=== PATIENT | male | born 1955 | race Caucasian/White ===

== ENCOUNTER 2021-06-05 23:16 | Inpatient (IN) | payer MEDICAID ==
[~2021-06-05] VITALS: Ht 172.7 cm; Wt 84.2 kg
[~2021-06-05 23:16] MED LIST: GLIP5TAB12 PO; METF-370 PO
[2021-06-06 00:56] LABS: Hematocrit 36.3 % (41.0-53.0); Hemoglobin 12.3 g/dL (13.5-17.5); Mean Corpuscular Hemoglobin 30.4 pg (28.0-32.0); Mean Corpuscular Hgb Conc. 33.9 g/dL (32.0-36.0); Mean Corpuscular Volume 89.7 fL (80.0-100.0); Red Blood Cells 4.05 10^6/uL (4.5-5.90); Red Cell Distribution Width 14.1 % (11.8-14.3); White Blood Cell 8.7 10^3/uL (4.4-10.8)
[2021-06-06 00:58] LABS: Basophils % (manual) 0 (0.0-2.0); Blast Cells 0; Metamyelocytes % 0; Myelocytes % 0; Promyelocytes % 0; Reactive Lymphocytes 0
[2021-06-06 00:59] LABS: Urine Bacteria FEW /hpf (None Seen); Urine Blood Negative /uL (Negative); Urine Hyaline Cast MANY /lpf (0 - 2); Urine Mucus FEW (None Seen); Urine Specific Gravity 1.015 (1.001-1.035); Urine WBC 3 /hpf (0 - 3)
[2021-06-06 01:12] LABS: Partial Thromboplastin Time 21.2 sec (23.6-33.0)
[2021-06-06 01:15] LABS: Albumin 2.7 g/dL (3.4-5.0); BUN/Creatinine Ratio 18.5; Calcium 8.1 mg/dL (8.5-10.1); Magnesium 1.9 mg/dL (1.6-2.6); Potassium 4.8 mmol/L (3.5-5.1)
[2021-06-06 01:19] LABS: Bilirubin, Total 0.3 mg/dL (0.2-1.0); Total Protein 6.5 g/dL (6.4-8.2)
[2021-06-06 01:43] LABS: Band Neutrophils % (manual) 2; Eosinophils % (manual) 2 (0-7); Lymphocytes % (manual) 33 (10.0-50.0); Monocytes % (manual) 2 (0-12)
[2021-06-06] MEDS ORDERED: CLOPIDOGREL BISULFATE 75 MG TAB PO ONE (01:45)
[2021-06-06] MEDS ORDERED: HEPARIN SODIUM (PORCINE) 5000 UNITS/ML 1ML VIAL IV ONE ×2 (01:45→11:30)
[2021-06-06] MEDS ORDERED: ASPirin 325 MG TAB PO ONE (01:45)
[2021-06-06] MEDS ORDERED: HEPARIN DRIP/D5W 100UNITS/ML 250 ML IV SCH (01:45)
[2021-06-06] MEDS ORDERED: CLOPIDOGREL 300 MG TAB ONE (03:43)
[2021-06-06] MEDS ORDERED: CLOPIDOGREL BISULFATE 75 MG TAB ONE ×4 (03:50→03:55)
[2021-06-06] MEDS ORDERED: ALBUMIN 25% 50 ML IV ONE (06:15)
[2021-06-06] MEDS ORDERED: ACETAMINOPHEN 325 MG TAB PO PRN (06:15)
[2021-06-06] MEDS ORDERED: DOCUSATE SOD 100 MG CAP PO PRN (06:15)
[2021-06-06] MEDS ORDERED: DEXTROSE (50%) 50ML SYRG IV PRN (06:15)
[2021-06-06] MEDS ORDERED: MORPHINE SULFATE 4 MG/ML SYR/VIAL IV PRN (06:15)
[2021-06-06] MEDS: SODIUM CHLORIDE 0.9% 1,000 ML IV SCH ×2 (06:15→22:55)
[2021-06-06] MEDS ORDERED: HYDROcodone-ACET 5/325MG TAB PO PRN (06:15)
[2021-06-06] MEDS ORDERED: ONDANSETRON HCL 4 MG/2 ML VIAL IV PRN (06:15)
[2021-06-06] MEDS: InsuLIN REG 1unit/0.01ml Soln (100units/ml) SC SCH ×4 (07:00→21:53)
[2021-06-06] MEDS: ACCU-CHEK COMFORT CURVE STRIP VI SCH ×4 (07:00→21:51)
[2021-06-06] MEDS ORDERED: MORPHINE SULFATE INJECTION 2 MG/ML SYRG IV PRN (07:00)
[2021-06-06] MEDS ORDERED: NITROGLYCERIN 0.4 MG SL TAB SL PRN (07:00)
[2021-06-06 07:49] LABS: Basophils # (auto) 0.1 10 ^3/uL (0-0.2); Basophils % (auto) 1.1 % (0.0-2.0); Eosinophils # (auto) 0.2 10 ^3/uL (0-0.8); Eosinophils % (auto) 2.7 % (0.0-7.0); Hematocrit 37.5 % (41.0-53.0); Hemoglobin 12.5 g/dL (13.5-17.5); Lymphocytes # (auto) 2.2 10 ^3/uL (0.4-5.4); Lymphocytes % (auto) 32.6 % (10.0-50.0); Mean Corpuscular Hemoglobin 29.6 pg (28.0-32.0); Mean Corpuscular Hgb Conc. 33.4 g/dL (32.0-36.0); Mean Corpuscular Volume 88.8 fL (80.0-100.0); Monocytes # (auto) 0.4 10 ^3/uL (0-1.3); Monocytes % (auto) 6.7 % (0.0-12.0); Neutrophils # (auto) 3.8 10 ^3/uL (1.6-8.6); Neutrophils % (auto) 56.9 % (37.0-80.0); Red Blood Cells 4.22 10^6/uL (4.5-5.90); Red Cell Distribution Width 13.7 % (11.8-14.3); White Blood Cell 6.7 10^3/uL (4.4-10.8)
[2021-06-06 08:05] LABS: Albumin 2.9 g/dL (3.4-5.0); BUN/Creatinine Ratio 19.2; Calcium 8.6 mg/dL (8.5-10.1); Potassium 4.3 mmol/L (3.5-5.1)
[2021-06-06 08:08] LABS: Bilirubin, Total 0.3 mg/dL (0.2-1.0); Total Protein 6.2 g/dL (6.4-8.2)
[2021-06-06 10:14] LABS: INR 1.03 (0.9-1.15); Partial Thromboplastin Time 35.1 sec (23.6-33.0)
[2021-06-06] MEDS: HEPARIN DRIP/D5W 100UNITS/ML 250 ML IV SCH (12:09)
[2021-06-06] MEDS: ASPirin 81 mg TAB PO SCH (12:35)
[2021-06-06] MEDS: FAMOTIDINE (10MG/ML) 2ML VL IV SCH ×2 (12:35→21:54)
[2021-06-06 13:00] VITALS: BP 125/65
[2021-06-06] MEDS ORDERED: LISI-275 PO (14:51)
[2021-06-06 17:00] VITALS: BP 133/61
[2021-06-06 18:52] LABS: INR 1.05 (0.9-1.15); Partial Thromboplastin Time 42.3 sec (23.6-33.0)
[2021-06-06] MEDS: ATORVASTATIN 20 MG TAB PO SCH (21:55)
[2021-06-06 22:00] VITALS: BP 132/64
[2021-06-07 01:36] LABS: INR 1.05 (0.9-1.15); Partial Thromboplastin Time 44.4 sec (23.6-33.0)
[2021-06-07] MEDS: HEPARIN DRIP/D5W 100UNITS/ML 250 ML IV SCH (02:06)
[2021-06-07 05:00] VITALS: BP 143/71
[2021-06-07] MEDS: InsuLIN REG 1unit/0.01ml Soln (100units/ml) SC SCH ×4 (06:34→22:23)
[2021-06-07] MEDS: ACCU-CHEK COMFORT CURVE STRIP VI SCH ×4 (06:34→22:23)
[2021-06-07 07:21] LABS: Basophils # (auto) 0.1 10 ^3/uL (0-0.2); Basophils % (auto) 1.5 % (0.0-2.0); Eosinophils # (auto) 0.2 10 ^3/uL (0-0.8); Eosinophils % (auto) 2.8 % (0.0-7.0); Hematocrit 38.6 % (41.0-53.0); Hemoglobin 13.1 g/dL (13.5-17.5); Lymphocytes # (auto) 1.8 10 ^3/uL (0.4-5.4); Lymphocytes % (auto) 28.1 % (10.0-50.0); Mean Corpuscular Hgb Conc. 33.9 g/dL (32.0-36.0); Mean Corpuscular Volume 88.7 fL (80.0-100.0); Monocytes # (auto) 0.5 10 ^3/uL (0-1.3); Monocytes % (auto) 7.1 % (0.0-12.0); Neutrophils # (auto) 3.9 10 ^3/uL (1.6-8.6); Neutrophils % (auto) 60.5 % (37.0-80.0); Red Blood Cells 4.36 10^6/uL (4.5-5.90); Red Cell Distribution Width 13.8 % (11.8-14.3); White Blood Cell 6.4 10^3/uL (4.4-10.8)
[2021-06-07 07:28] LABS: INR 1.05 (0.9-1.15)
[2021-06-07 07:30] LABS: Calcium 8.5 mg/dL (8.5-10.1); Potassium 4.5 mmol/L (3.5-5.1)
[2021-06-07 07:36] LABS: Albumin 2.9 g/dL (3.4-5.0); BUN/Creatinine Ratio 16.5; Bilirubin, Total 0.3 mg/dL (0.2-1.0); Total Protein 6.3 g/dL (6.4-8.2)
[2021-06-07 09:00] VITALS: BP 142/72
[2021-06-07] MEDS: FAMOTIDINE (10MG/ML) 2ML VL IV SCH ×2 (10:10→22:06)
[2021-06-07] MEDS: ASPirin 81 mg TAB PO SCH (10:11)
[2021-06-07 13:00] VITALS: BP 124/61
[2021-06-07 14:23] LABS: INR 1.04 (0.9-1.15); Partial Thromboplastin Time 60.5 sec (23.6-33.0)
[2021-06-07 17:00] VITALS: BP 133/71
[2021-06-07] MEDS: SODIUM CHLORIDE 0.9% 1,000 ML IV SCH ×2 (19:28→20:28)
[2021-06-07 19:36] LABS: Partial Thromboplastin Time 31.3 sec (23.6-33.0)
[2021-06-07] MEDS ORDERED: HEPARIN SODIUM (PORCINE) 5000 UNITS/ML 1ML VIAL IV ONE (20:30)
[2021-06-07] MEDS ORDERED: HEPARIN DRIP/D5W 100UNITS/ML 250 ML IV SCH (20:30)
[2021-06-07 22:00] VITALS: BP 123/46
[2021-06-07] MEDS: ATORVASTATIN 20 MG TAB PO SCH (22:06)
[2021-06-08 03:39] LABS: INR 1.04 (0.9-1.15)
[2021-06-08 03:43] LABS: Partial Thromboplastin Time > 139.0 sec (23.6-33.0)
[2021-06-08 05:00] VITALS: BP 137/66
[2021-06-08 06:03] LABS: INR 1.04 (0.9-1.15); Partial Thromboplastin Time 64.6 sec (23.6-33.0)
[2021-06-08] MEDS: InsuLIN REG 1unit/0.01ml Soln (100units/ml) SC SCH ×3 (06:50→18:45)
[2021-06-08] MEDS: ACCU-CHEK COMFORT CURVE STRIP VI SCH ×3 (06:50→17:00)
[2021-06-08 09:00] VITALS: BP 143/60
[2021-06-08] MEDS: FAMOTIDINE (10MG/ML) 2ML VL IV SCH (10:34)
[2021-06-08] MEDS: ASPirin 81 mg TAB PO SCH (10:34)
[2021-06-08 12:28] LABS: INR 1.02 (0.9-1.15); Partial Thromboplastin Time 39.6 sec (23.6-33.0)
[2021-06-08 12:31] VITALS: BP 157/75
[2021-06-08] MEDS ORDERED: LIDOCAINE 2%HCL (LOCAL ANESTH.) INJ 20ML MDV ONE (13:23)
[2021-06-08] MEDS ORDERED: IOHEXOL 350 MG/ML 100ML IJ ONE (13:23)
[2021-06-08] MEDS ORDERED: ANGIOMAX 250 MG VIAL IV ONE (13:32)
[2021-06-08] MEDS ORDERED: fentaNYL CITRATE 100 MCG/2 ML VL ONE (13:33)
[2021-06-08] MEDS ORDERED: MIDAZOLAM HCL 2MG/2ML 2ml VIAL (1mg/ml) ONE (13:33)
[2021-06-08] MEDS ORDERED: SODIUM CHL 0.9% 50 ML ONE (13:33)
[2021-06-08 17:00] VITALS: BP 146/70
== END 2021-06-08 19:15 | disposition home or self-care (01) | DRG 190 ==
LOC: EDBD 23:16 → ER 23:16 → TELE 06-06 06:47 → TELE-CENTR 06-06 11:05
PROVIDERS: ADMIT Nurse Practitioner Family; ATTEND Internal Medicine
PROC: 4A033BC Measurement of Arterial Pressure, Coronary, Percutaneous Approach (ICD-10-PCS; principal; 2021-06-08)
PROC: B2111ZZ Fluoroscopy of Multiple Coronary Arteries using Low Osmolar Contrast (ICD-10-PCS; 2021-06-08)
PROC: 4A023N7 Measurement of Cardiac Sampling and Pressure, Left Heart, Percutaneous Approach (ICD-10-PCS; 2021-06-08)
PROC: B2151ZZ Fluoroscopy of Left Heart using Low Osmolar Contrast (ICD-10-PCS; 2021-06-08)
DX: I21.4 Non-ST elevation (NSTEMI) myocardial infarction (principal); E88.09 Other disorders of plasma-protein metabolism, not elsewhere classified; E11.9 Type 2 diabetes mellitus without complications; I10 Essential (primary) hypertension; I25.10 Atherosclerotic heart disease of native coronary artery without angina pectoris; Z20.822 Contact with and (suspected) exposure to COVID-19; E78.5 Hyperlipidemia, unspecified; Z82.49 Family history of ischemic heart disease and other diseases of the circulatory system; Z83.3 Family history of diabetes mellitus; Z95.5 Presence of coronary angioplasty implant and graft
CPT/HCPCS: 36415; 71045; 80053; 80061; 81001; 82962; 83036; 83735; 83880; 84443; 84484; 85007; 85025; 85027; 85610; 85730; 87426; 93005; 93306; 93458; 93571; 96365; 96375; 99152; 99291; G0378; J1815; J2250; J3490